=== PATIENT | male | born 1965 | race Caucasian/White ===

== ENCOUNTER → 2019-12-20 | Outpatient (CLI) | payer OTHER ==
[~2019-12-20] MED LIST: AMOX500 PO; ANTOXYBENA LEFTEAR; CEPH500 PO; CIPRO500 MG PO; CYCL10 PO; Cortisporin Ear10 M1; ESOM20 PO; HYDACE25S PR; HYDACE5 PO; HYDACE5325 PO; HYDCOR1TOA TOP; HYDCOR2.5A PR; HYDCOR2.5C PR; HYDR25SUP PR; IBUP600 PO; IBUP800 PO; LORA.5; METO10 PO; NAPR500 PO; NAPR550 PO; Norco 10-325 T1 EACH PO; OXYACE5T PO; PROM25 PO; RXHYD5325 PO; RXOXYACE PO; RXPROM25 PO
== END | disposition home or self-care (01) ==
LOC: LAB SHORT 14:05 → LAB 14:05
DX: R31.9 Hematuria, unspecified (principal)
CPT/HCPCS: 87086

== ENCOUNTER 2020-08-28 14:14 | Emergency (ER) | payer OTHER ==
[~2020-08-28] VITALS: Ht 180.3 cm; Wt 88.5 kg
[2020-08-28 14:47] LABS: BASOPHILS ABSOLUTE AUTO 0.07 K/mm3 (0.00-0.23); BASOPHILS PERCENT AUTO 1 % (0-2); EOSINOPHILS ABSOLUTE AUTO 0.04 K/mm3 (0.00-0.68); EOSINOPHILS PERCENT AUTO 0 % (0-6); Hematocrit 50.6 % (37.0-53.0); Hemoglobin 17.2 g/dL (13.5-17.5); IMMATURE GRAN ABSOLUTE AUTO 0.03 K/mm3 (0.00-0.10); IMMATURE GRAN PERCENT AUTO 0 % (0-1); LYMPHOCYTES ABSOLUTE AUTO 1.98 K/mm3 (0.84-5.20); LYMPHOCYTES PERCENT AUTO 19 % (21-46); MONOCYTES ABSOLUTE AUTO 0.64 K/mm3 (0.16-1.47); MONOCYTES PERCENT AUTO 6 % (4-13); Mean Corpuscular HGB 29.6 pg (26.0-34.0); Mean Corpuscular Volume 87 fL (80-100); Mean Platelet Volume 10.1 fL (9.1-12.4); NEUTROPHILS ABSOLUTE AUTO 7.74 K/mm3 (1.96-9.15); NEUTROPHILS PERCENT AUTO 74 % (41-73); Platelet Count 281 K/mm3 (150-400); RDW Coefficient Variation 12.2 % (11.7-14.2); RDW Standard Deviation 38.6 fL (35.1-46.3); Red Blood Cell Count 5.82 M/mm3 (4.30-5.90)
[2020-08-28 15:02] LABS: Alanine Aminotransfer (ALT/SGP 33 U/L (12-78); Albumin, Blood 4.4 g/dL (3.4-5.0); Albumin/Globulin Ratio 1.1 (0.8-1.8); Alk Phos 86 U/L (50-136); Anion Gap 10 mmol/L (6-16); Aspartate Aminotrans (AST/SGOT 22 U/L (12-37); Bilirubin, Total 0.6 mg/dL (0.1-1.0); Blood Urea Nitrogen 16 mg/dL (8-24); Bun/Creatinine Ratio 14.2 (12.0-20.0); CO2, Blood 26 mmol/L (21-32); Calcium, Blood 9.7 mg/dL (8.5-10.1); Chloride, Blood 106 mmol/L (98-108); Creatinine, Blood 1.13 mg/dL (0.60-1.20); Glomerular Filtration Rate >60 (60-); Glucose, Blood 107 mg/dL (70-99); Potassium, Blood 3.7 mmol/L (3.5-5.5); Sodium, Blood 142 mmol/L (136-145); Total Protein, Blood 8.4 g/dL (6.4-8.2)
[2020-08-28 15:04] LABS: Troponin I <0.015 ng/mL (0.000-0.040)
[2020-08-28] MEDS ORDERED: MOTION RELIEF25 MG PO (18:07)
== END 2020-08-28 18:37 | disposition home or self-care (01) ==
LOC: ER 14:14
PROVIDERS: Emergency Medicine
DX: R42 Dizziness and giddiness (principal); H93.11 Tinnitus, right ear; J44.9 Chronic obstructive pulmonary disease, unspecified; M54.5 Low back pain; G89.29 Other chronic pain; Z87.891 Personal history of nicotine dependence; Z79.899 Other long term (current) drug therapy
CPT/HCPCS: 36415; 70496; 70498; 80053; 83690; 84484; 85025; 85379; 93005; 93010; 96360; 99284-25; J7120; Q9967

== ENCOUNTER 2024-05-24 11:34 | Emergency (ER) | payer OTHER ==
[~2024-05-24] VITALS: Ht 180.3 cm; Wt 83.0 kg
[~2024-05-24 11:34] MED LIST changes: +ASPI81CH PO; +Acetaminophen325 M1 PO; +MOTION RELIEF25 MG PO; +PROAIR DIGIHAL90 MCG INH; +[UNRECOGNIZED DRUG - CODE] PO
[2024-05-24 14:00] LABS: BASOPHILS ABSOLUTE AUTO 0.08 K/mm3 (0.00-0.23); BASOPHILS PERCENT AUTO 1 % (0-2); EOSINOPHILS PERCENT AUTO 3 % (0-6); Hematocrit 43.4 % (37.0-53.0); Hemoglobin 14.8 g/dL (13.5-17.5); IMMATURE GRAN ABSOLUTE AUTO 0.01 K/mm3 (0.00-0.10); IMMATURE GRAN PERCENT AUTO 0 % (0-1); LYMPHOCYTES ABSOLUTE AUTO 2.03 K/mm3 (0.84-5.20); LYMPHOCYTES PERCENT AUTO 26 % (21-46); MONOCYTES ABSOLUTE AUTO 0.54 K/mm3 (0.16-1.47); MONOCYTES PERCENT AUTO 7 % (4-13); Mean Corpuscular HGB 29.4 pg (26.0-34.0); Mean Corpuscular HGB Conc 34.1 g/dL (31.5-36.5); Mean Corpuscular Volume 86 fL (80-100); Mean Platelet Volume 10.6 fL (9.1-12.4); NEUTROPHILS PERCENT AUTO 63 % (41-73); Platelet Count 298 K/mm3 (150-400); RDW Coefficient Variation 12.8 % (11.7-14.2); RDW Standard Deviation 39.8 fL (35.1-46.3); Red Blood Cell Count 5.04 M/mm3 (4.30-5.90); White Blood Cell Count 7.76 K/mm3 (4.00-11.30)
[2024-05-24 14:11] LABS: Albumin, Blood 3.9 g/dL (3.4-5.0); Albumin/Globulin Ratio 1.1 (0.8-1.8); Bilirubin, Total 0.5 mg/dL (0.1-1.0); Bun/Creatinine Ratio 14.5 (12.0-20.0); Calcium, Blood 8.9 mg/dL (8.5-10.1); Creatinine, Blood 1.1 mg/dL (0.60-1.20); Globulin, Blood 3.7 g/dL (2.2-4.0); Potassium, Blood 4.1 mmol/L (3.5-5.5); Total Protein, Blood 7.6 g/dL (6.4-8.2)
[2024-05-24 14:17] LABS: International Normalized Ratio 1.09; Prothrombin Time Results 11.6 Sec (9.7-11.5)
[2024-05-24] MEDS ORDERED: LORazepam 2 MG/ML 1ML Injection IV ONE ×2 (15:00→19:25)
[2024-05-24] MEDS ORDERED: FentaNYL Citrate 50 MCG/ML 2 ML Injection IV ONE (15:00)
[2024-05-24 20:59] VITALS: BP 124/86
== END 2024-05-24 21:04 | disposition short-term general hospital (02) ==
LOC: ER 11:34
PROVIDERS: Physician Assistant
DX: J93.0 Spontaneous tension pneumothorax (principal); J98.11 Atelectasis; J43.8 Other emphysema; J90 Pleural effusion, not elsewhere classified; N20.0 Calculus of kidney; F41.9 Anxiety disorder, unspecified; J44.9 Chronic obstructive pulmonary disease, unspecified; Z87.891 Personal history of nicotine dependence; Z79.82 Long term (current) use of aspirin; Z79.899 Other long term (current) drug therapy; Z88.5 Allergy status to narcotic agent; Z88.8 Allergy status to other drugs, medicaments and biological substances
CPT/HCPCS: 32551; 71045; 71046; 71250; 80053; 83735; 85025; 85610; 85730; 86850; 86900; 86901; 93005; 93010; 96374-59; 96376-59; 99285-25; J2060; J3010

== ENCOUNTER 2025-02-06 17:28 | Observation (INO) | payer SELFPAY ==
[~2025-02-06] VITALS: Ht 180.3 cm; Wt 96.2 kg
[2025-02-06] MEDS ORDERED: FentaNYL Citrate 50 MCG/ML 2 ML Injection IV ONE (17:45)
[2025-02-06] MEDS ORDERED: Ondansetron HCl 2 MG / ML 2ML Vial IV ONE (17:45)
[2025-02-06] MEDS ORDERED: Ketorolac Tromethamine 15mg Vial IV ONE (17:45)
[2025-02-06 18:15] LABS: BASOPHILS ABSOLUTE AUTO 0.06 K/mm3 (0.00-0.23); BASOPHILS PERCENT AUTO 1 % (0-2); EOSINOPHILS ABSOLUTE AUTO 0.14 K/mm3 (0.00-0.68); EOSINOPHILS PERCENT AUTO 1 % (0-6); Hematocrit 47.4 % (37.0-53.0); IMMATURE GRAN ABSOLUTE AUTO 0.03 K/mm3 (0.00-0.10); IMMATURE GRAN PERCENT AUTO 0 % (0-1); LYMPHOCYTES ABSOLUTE AUTO 2.06 K/mm3 (0.84-5.20); LYMPHOCYTES PERCENT AUTO 17 % (21-46); MONOCYTES ABSOLUTE AUTO 0.77 K/mm3 (0.16-1.47); MONOCYTES PERCENT AUTO 6 % (4-13); Mean Corpuscular HGB Conc 33.8 g/dL (31.5-36.5); Mean Corpuscular Volume 86 fL (80-100); Mean Platelet Volume 9.8 fL (9.1-12.4); NEUTROPHILS ABSOLUTE AUTO 9.32 K/mm3 (1.96-9.15); NEUTROPHILS PERCENT AUTO 75 % (41-73); Platelet Count 327 K/mm3 (150-400); RDW Coefficient Variation 12.5 % (11.7-14.2); RDW Standard Deviation 39.1 fL (35.1-46.3); Red Blood Cell Count 5.52 M/mm3 (4.30-5.90); White Blood Cell Count 12.38 K/mm3 (4.00-11.30)
[2025-02-06 18:39] LABS: Albumin, Blood 4.2 g/dL (3.4-5.0); Bilirubin, Total 0.4 mg/dL (0.1-1.0); Bun/Creatinine Ratio 16.4 (12.0-20.0); Calcium, Blood 9.7 mg/dL (8.5-10.1); Creatinine, Blood 1.4 mg/dL (0.60-1.20); Globulin, Blood 4.4 g/dL (2.2-4.0); Potassium, Blood 3.8 mmol/L (3.5-5.5); Total Protein, Blood 8.6 g/dL (6.4-8.2)
[2025-02-06] MEDS ORDERED: Acetaminophen 500 MG Tab PO ONE (19:45)
[2025-02-06] MEDS ORDERED: Lactated Ringer's 1,000 ML IV SCH (19:45)
[2025-02-06 20:17] LABS: Source, Urine Clean Catch
[2025-02-06 20:28] LABS: Appearance, Urine Clear (Clear); Bilirubin, Urine Neg (Neg); Blood, Urine 4+ (Neg); Color, Urine Yellow (P-Yellow); Glucose Qualitative, Urine Neg (Neg); Ketones, Urine Neg (Neg); Leukocyte Esterase, Urine Neg (Neg); Nitrite, Urine Neg (Neg); Protein, Urine 2+ (Neg); Urobilinogen, Urine NORM (Normal)
[2025-02-06 20:35] LABS: White Blood Cells, Urine Not Seen /hpf (0-5)
[2025-02-06 20:36] LABS: Bacteria Not Seen /hpf; Calcium Oxalate Crystals Few /hpf; Squamous Epithelial Cells Rare /hpf (Few)
[2025-02-06] MEDS ORDERED: FentaNYL Citrate 50 MCG/ML 2 ML Injection IV PRN (22:55)
[2025-02-06] MEDS ORDERED: Acetaminophen 325 MG TABLET PO PRN (22:55)
[2025-02-06] MEDS ORDERED: Ondansetron HCl 2 MG / ML 2ML Vial IV PRN (22:55)
[2025-02-06] MEDS ORDERED: NS 1,000 ML IV SCH (22:55)
[2025-02-06] MEDS ORDERED: Tamsulosin HCl 0.4 MG Cap PO SCH (23:00)
[2025-02-06] MEDS ORDERED: CefTRIAXone Sodium 1,000 MG in NS 100 ML IV SCH (23:27)
[2025-02-07] MEDS ORDERED: DILT30 (05:17)
[2025-02-07 06:00] VITALS: BP 126/79
[2025-02-07] MEDS ORDERED: Aspirin 81 MG Chew PO SCH (09:00)
[2025-02-07] MEDS ORDERED: dilTIAZem HCL 30 MG TAB PO SCH (09:00)
== END 2025-02-07 06:10 | disposition short-term general hospital (02) ==
LOC: ER 17:28 → ERHOLD 17:29 → ER 17:29 → ERHOLD 22:50 → ER 22:50 → ERHOLD 02-07 06:10 → ER 02-07 06:10
PROVIDERS: Student in an Organized Health Care Education/Training Program; ADMIT Internal Medicine
DX: N13.1 Hydronephrosis with ureteral stricture, not elsewhere classified (principal); N17.9 Acute kidney failure, unspecified; J44.9 Chronic obstructive pulmonary disease, unspecified; Z87.891 Personal history of nicotine dependence; Z79.82 Long term (current) use of aspirin; Z88.5 Allergy status to narcotic agent; Z88.8 Allergy status to other drugs, medicaments and biological substances
CPT/HCPCS: 71045; 74177; 80053; 81001; 83605; 83690; 83880; 84484; 85025; 93005; 93010; 96361; 96365; 96366; 96375; 99285-25; A9270; G0378; J0696; J1885; J2405; J7030; J7120; Q9967